=== PATIENT | male | born 1960 | race Caucasian/White ===

== ENCOUNTER 2025-09-29 10:25 | Emergency (ER) | payer MEDICARE, BC, MEDICAID ==
[~2025-09-29] VITALS: Ht 180.3 cm; Wt 105.9 kg
[~2025-09-29 10:25] MED LIST: LACT1CAP55 PO; LISI1TAB53 PO; PANT40TA54 PO; tamsulosin capsule PO
[2025-09-29 10:27] VITALS: TEMP 98.7
--- NOTE | 2025-09-29 10:51 | ELECTROCARDIOGRAPH REPORT ---
[facility] Test Date: 2025-09-29 Test Time: 10:48:33 Pat Name: SUELLEN SOLIS Department: [facility]- Patient ID: [id number] Room: Gender: M M[employer]: : 1960 Requested By: PATY MUSE Order Number: [id number] Reading MD: Dr. MANAV Terrell Measurements Intervals [place] Rate: 73 P: 57 MA: 151 QRS: -9 QRSD: 111 T: 71 QT: 386 QTc: 426 Interpretive Statements Sinus rhythm Atrial premature complex Electronically Signed On 09-30-2025 16:55:[address] MANAV Terrell Please click the below link to view image of tracing.
--- NOTE | 2025-09-29 11:00 | RADIOLOGY REPORT ---
EXAM: DI CHEST,SINGLE VIEW Indication: CP Technique: Single frontal view of the chest was obtained Comparison: None FINDINGS: Lines and Tubes: None Lungs: No focal consolidation. Pleura: No effusion. No pneumothorax. Cardiomediastinal contours: Unremarkable Bones: No acute osseous abnormality. IMPRESSION: No acute cardiopulmonary disease.
[2025-09-29 11:22] LABS: MEAN PLATELET VOLUME 8.1 FL (7.4-10.4); RED CELL DISTRIBUTION WIDTH 14.1 % (11.5-14.5)
--- NOTE | 2025-09-29 11:26 | HISTORY AND PHYSICAL-Residence ---
History & Physical Providers to CC ~ History of Present Illness Primary Medical Doctor: NONE Allergies: Coded Allergies: No Known Allergies (Unverified , 09/29/25) Home Medications Home Medications Active Pantoprazole Sodium 40 Mg Tablet.dr 40 Mg PO BKF [tamsulosin capsule] 0.4 MG Cap 0.4 Mg PO HS Culturelle Capsule (L. Rhamnosus GG/Inulin) 1 Each Cap.sprink 1 Cap PO BID 30 Days Reported Lisinopril-Hctz 20-25 mg Tab (Lisinopril/Hydrochlorothiazide) 1 Each Tablet 1 Tab PO DAILY 30 Days Past Social History Smoking: Cigarettes Alcohol Use: Occasionally Drug Use: None Lives with: Family Lives In: Home Occupation: employed Exam Vitals: Vital Signs Date Time Temp Pulse Resp B/P (MAP) Pulse Ox O2 Delivery O2 Flow Rate FiO2 09/29/25 10:57 91 18 131/84 (100) 98 0 09/29/25 10:27 98.7 SHEEBA MORRISON, RES Sep 29, 2025 11:26
[2025-09-29 11:27] LABS: CREATININE 0.75 MG/DL (0.60-1.10); TOTAL CARBON DIOXIDE 25.7 MMOL/L (24-32); eCRCL 105 ML/MIN; eGFR > 90 ML/MIN
[2025-09-29 11:34] LABS: PRO BRAIN NATRIURETIC PEPTIDE 41 PG/ML (0-125)
--- NOTE | 2025-09-29 11:34 | Physician Documentation ---
History of Present Illness CC: PATY MUSE MD ~ Chief Complaint: Chest Pain Stated Complaint: DOC REFERRED Time Seen by MD: 10:39 Primary Medical Doctor: NONE HPI This is 65 year old male with history of hepatitis c ,Hypertension presented in ER beacause he was refered by his PCP for chest pressure.Patient reports 3 days ago he had shoulder pain left sided, which started after he heavy lifted in gym, shoulder pain occurs only with movement, which is 10/10 in intensity with moveme nt, denies nausea vomitting, sweating,palpitation or abdominal pain.In addition to that he also reports chest pressure like sensation on right side side when he woke up.He also reports chest pressure like sensation radiates to back. Apart from that he also states, numbness in his left face and left arm since 3 days, he also reports when he is working he dont feel numb at that time and currently states he have no numbness. Medication Reconciliation Allergies: Coded Allergies: No Known Allergies (Unverified , 09/29/25) Scheduled L. Rhamnosus GG/Inulin (Culturelle Capsule), 1 CAP PO BID Lisinopril/Hydrochlorothiazide (Lisinopril-Hctz 20-25 mg Tab), 1 TAB PO DAILY, (Reported) Pantoprazole Sodium (Pantoprazole Sodium), 40 MG PO BKF [tamsulosin capsule], 0.4 MG PO HS Past Medical History Past Medical History: Hypertension, Hepatitis C Alcohol Use: Occasionally Drug Use: none Lives with: Family Lives In: Home Occupation: employed Review of Systems ROS all reviewed and negative except for pertinent positive findings mentioned in HPI Physical Exam Vital Signs: Temperature: 98.7, Source: Temporal, Heart Rate: 91, Respiratory Rate: 18, BP: 131/84, Pulse Oximetry: 98, Weight: 105.900 Oxygen Flow Rate: 0 Physical Exam General: awake, alert oriented to place, time, and person HEENT: No pallor present, no icterus, moist mucous membranes Neck: No masses and tenderness Resp: Unlabored. Lungs clear to auscultation bilaterally. Chest: Normal expansion. Cardiovascular: Regular Rate and rhythm, normal S1 and S2 without murmur, rub or gallop Abdomen: Soft and non tender in epigastrium, no organomegaly, no guarding and rigidity, bowel sounds present Neuro: No focal weakness in the upper and lower limb muscles, power of the muscles 5/5 bilateral upper and lower extremities, normal reflexes bilaterally. Cranial nerves intact Extremities: No cyanosis,clubbing or edema Skin: Warm and Dry. Psych: Normal affect Progress Results/Orders Results/Orders Completed Orders - SHEEBA MORRISON RES CMP (09/29/25 10:39) Vital Signs 09/29/25 09/29/25 09/29/25 10:27 10:57 11:24 Temp 98.7 Pulse 90 91 Resp 16 18 B/P (MAP) 215/94 131/84 (100) Pulse Ox 99 98 O2 Flow Rate 0 0 Laboratory Tests Test 09/29/25 10:45 White Blood Count 6.7 Red Blood Count 4.96 Hemoglobin 15.0 Hematocrit 43.7 Mean Corpuscular Volume 88.2 Mean Corpuscular Hemoglobin 30.3 Mean Corpuscular Hemoglobin Concent 34.4 Red Cell Distribution Width 14.1 Platelet Count 198 Mean Platelet Volume 8.1 Neutrophils (%) (Auto) 66.5 Lymphocytes (%) (Auto) 25.3 Monocytes (%) (Auto) 5.8 Eosinophils (%) (Auto) 2.0 Basophils (%) (Auto) 0.4 Neutrophils # (Auto) 4.4 Lymphocytes # (Auto) 1.7 Monocytes # (Auto) 0.4 Eosinophils # (Auto) 0.1 Basophils # (Auto) 0.0 CBC Comment Sodium Level 140 Potassium Level 3.7 Chloride Level 106 Carbon Dioxide Level 25.7 Anion Gap 8 Blood Urea Nitrogen 19 H Creatinine 0.75 Estimated GFR/1.73 m2 > 90 BUN/Creatinine Ratio 25.3 H Glucose Level 138 H Calcium Level 8.4 L Total Bilirubin 1.3 H Aspartate Amino Transf (AST/SGOT) 16 Alanine Aminotransferase (ALT/SGPT) 32 Alkaline Phosphatase 153 H Troponin I High Sensitivity 5 Pro-B-Type Natriuretic Peptide 41 Total Protein 8.4 H Albumin 3.9 Globulin 4.5 H Albumin/Globulin Ratio 0.9 L Chemistry Comments Medical Decision Making Additional information obtaine: N/A Findings Non Specific Chest Pain/Chest pressure EKG shows sinus rhythm, normal axis, no STEMI Trop negative Chest x-ray shows no acute change. Currently he dont have chest pressure. Left Shoulder Pain possibly secondary to Heavy lifting Use. Numbness of left side of face and left arm possibly secondary to hypocalcemia Currently patient reports no numbness. Neuro: No focal weakness in the upper and lower limb muscles, power of the muscles 5/5 bilateral upper and lower extremities, normal reflexes bilaterally. Cranial nerves intact Heart Score: 2 Differential Dx:Considerations: Include: angina, chest wall pain, costochondritis, pleuritis, pneumonia Departure Disposition: HOME / SELF CARE / HOMELESS Impression: Primary Impression: Atypical chest pain Condition: Stable Discharge Instructions: Hypocalcemia, Adult, Nonspecific Chest Pain, Adult, Shoulder Pain, [id number] Additional Instructions: Follow up with PCP within 1 week of discharge. 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 Education Educated: Patient Signature Scribe Signature: No scribe Attestation: Case seen and discussed with SHEEBA Sheffield, RES Sep 29, 2025 11:34
[2025-09-29 12:24] VITALS: BP 138/85; PULSE 82; RESP 18; O2SAT 98
== END 2025-09-29 12:26 | disposition home or self-care (01) ==
LOC: ER 10:27
DX: R07.9 Chest pain, unspecified (principal); I10 Essential (primary) hypertension; R06.02 Shortness of breath; Z86.19 Personal history of other infectious and parasitic diseases; Z79.899 Other long term (current) drug therapy; Z72.89 Other problems related to lifestyle
CPT/HCPCS: 36415; 71045; 80053; 83880; 84484; 85025; 93005; 99285